=== PATIENT | female | born 1940 | race African-American/Black ===

== ENCOUNTER 2018-09-25 03:04 | Emergency (ER) | payer OTHER, MEDICAID ==
[~2018-09-25] VITALS: Ht 165.1 cm; Wt 90.7 kg
[2018-09-25 03:09] VITALS: Ht 165.1 cm; Wt 90.7 kg
[2018-09-25 05:45] VITALS: BP 121/70
== END 2018-09-25 05:45 | disposition home or self-care (01) ==
LOC: EDBD 03:04 → ED 03:04
DX: F41.9 Anxiety disorder, unspecified (principal); I10 Essential (primary) hypertension; E11.9 Type 2 diabetes mellitus without complications; I48.91 Unspecified atrial fibrillation; Z88.0 Allergy status to penicillin
CPT/HCPCS: 82962; J2060; Q0092

== ENCOUNTER 2018-11-23 06:45 | Emergency (ER) | payer OTHER, MEDICAID ==
[~2018-11-23] VITALS: Ht 165.1 cm; Wt 90.7 kg
[2018-11-23 06:49] VITALS: Ht 165.1 cm; Wt 90.7 kg
[2018-11-23 08:51] VITALS: BP 121/73
== END 2018-11-23 09:25 | disposition home or self-care (01) ==
LOC: ED 06:45
DX: S80.02XA Contusion of left knee, initial encounter (principal); S00.03XA Contusion of scalp, initial encounter; J44.9 Chronic obstructive pulmonary disease, unspecified; I10 Essential (primary) hypertension; E11.9 Type 2 diabetes mellitus without complications; I48.91 Unspecified atrial fibrillation; Z88.0 Allergy status to penicillin; W06.XXXA Fall from bed, initial encounter; Y93.89 Activity, other specified; Y92.89 Other specified places as the place of occurrence of the external cause; Y99.8 Other external cause status

== ENCOUNTER 2019-02-23 20:36 | Inpatient (IN) | payer OTHER, MEDICAID ==
[~2019-02-23] VITALS: Ht 166.4 cm; Wt 91.3 kg
--- NOTE | 2019-02-23 21:15 | NUR ---
PT PRESENTS TO ED WITH C/C OF CHRONIC INTERMITTENT COUGH. PER PT, COUGH IS PRODUCTIVE WITH "WHITE SLIME THAT LOOKS LIKE SNOT." PT LUNG SOUNDS CLEAR BILATERALLY. PT ALSO REPORTS HAVING N/V INTERMITTENTLY X3 WEEKS. NO ACTIVE VOMITING NOTED. PT DENIES CHEST PAIN OR SOB. PT IS AWAKE, SITTING UP IN GURNEY, SPEAKING IN FULL CLEAR SENTENCES, COUGHING NOTED, RESP ARE LABORED, BUT RELEIVED WITH HIGH LINN'S POSITION IN GURNEY, NAD NOTED. SKIN COLOR APPROPRIATE FOR ETHNICITY. PT'S DAUGHTER AT BEDSIDE. NAD NOTED. MSE COMPLETED BY DR. MARTINEZ.
--- NOTE | 2019-02-23 21:31 | NUR ---
PT MEDICATED PER MD ORDER. PT VERBALIZED UNDERSTANDING OF MEDICATION PRIOR TO ADMINISTRATION.
--- NOTE | 2019-02-23 21:31 | NUR ---
RT AT BEDSIDE FOR BREATHING TX.
[2019-02-23 21:47] LABS: BASOPHIL % 0.6 % (0-2); PLATELET COUNT 170 x10^3mcL (130-400)
[2019-02-23 22:12] LABS: CALCIUM 8.7 mg/dL (8.5-10.1); CARBON DIOXIDE 27.8 mmol/L (21-32); CHLORIDE SERUM 107 mmol/L (98-107); GLUCOSE SERUM 108 mg/dL (74-106); POTASSIUM SERUM 4.3 mmol/L (3.5-5.1); SODIUM SERUM 142 mmol/L (136-145)
--- NOTE | 2019-02-23 22:13 | NUR ---
DR. MARTINEZ AT BEDSIDE TO DISCUSS PLAN OF CARE WITH PT.
[2019-02-23 22:17] LABS: ALBUMIN 3.4 g/dL (3.4-5.0); ALKALINE PHOSPHATASE 122 U/L (46-116); ALT/SGPT 25 U/L (14-59); AST/SGOT 24 U/L (15-37); BILIRUBIN TOTAL 0.3 mg/dL (0.20-1.00); TOTAL PROTEIN, SERUM 6.8 g/dL (6.4-8.2)
[2019-02-23] MEDS ORDERED: CITALOPRAM HYDR10 M1 PO (22:17)
[2019-02-23] MEDS ORDERED: CARDIZEM CD360 MG PO (22:18)
[2019-02-23] MEDS ORDERED: COUMADIN2 MG PO (22:18)
[2019-02-23] MEDS ORDERED: ARICEPT5 MG PO (22:19)
[2019-02-23] MEDS ORDERED: ALLOPURINOL100 MG PO (22:19)
--- NOTE | 2019-02-23 22:54 | NUR ---
PT IS LAYING IN GURNEY AWAKE, AAOX4, RESP E/U, NAD NOTED, ON 2L VIA NC. REQUESTING TO EAT, PER DR. JUAN BAZAN TO GIVE PT SANDWICH.
--- NOTE | 2019-02-23 22:55 | NUR ---
REPORT CALLED TO RICHA GEIGER TO ASSUME CARE FOR PT.
--- NOTE | 2019-02-23 23:40 | NUR ---
PT WAS RECEIVED BY PRIMARY NURSE GIO FROM ED [facility]IA [facility] AT 2315H. PT SEEN LYING IN BED, CAME IN DUE TO COUGH X3 WEEKS. AAOX4. C/O 5/10 HEADACHE, DENIES DIZZINESS. ABLE TO FOLLOW COMMANDS. NO SOB NOTED, O2 SAT-96%, ON 2LPM/NC. C/O CHEST PAIN ONLY WHEN COUGHING. STATED THAT SHE HAS PRODUCTIVE COUGH, ABLE TO EXPECTORATE WHITE PHLEGM. AFIB ON THE MONITOR. DENIES ABDOMINAL PAIN/NASUEA/VOMITING. C/O CONSTIPATION, HAD HARD STOOLS TODAY. STATED THAT SHE HAS PERIODS OF INCONTINENCE WHEN COUGHING. IV SITE PATENT AND INTACT. SIDE RAILS UPX2. CALL LIGHT ON REACH. HOB ELEVATED AT 45 DEG.
[2019-02-23 23:42] VITALS: BP 102/65
[2019-02-23 23:53] VITALS: BP 128/75
[2019-02-23 23:56] VITALS: Ht 166.4 cm; Wt 91.3 kg
[2019-02-24 00:42] LABS: MAGNESIUM 2.2 mg/dL (1.8-2.4); PHOSPHOROUS 2.9 mg/dL (2.5-4.9)
--- NOTE | 2019-02-24 01:56 | NUR ---
DUE MEDS GIVEN ORDERED, SHIV. WELL. OCCA. NON PRODUCTIVE COUGH NOTED. [address], RESP. TREATMENT GIVEN BY RT, SHIV. WELL.HOB ELEVATED. REQUESTED FOR BENADRYL FOR SLEEPING, MEDICATED ORDERED. CALL LIGHT WITHIN REACH. WILL CONTINUE TO MONITOR.
[2019-02-24 05:09] VITALS: BP 108/63
--- NOTE | 2019-02-24 06:05 | NUR ---
NO COMPLAINTS NOTED AT THIS TIME. SLEPT WELL. RESP. EVEN AND UNLABORED. DENIES SOB. [address], NO ACUTE DISTRESS NOTED. REMAINS AFIB ON THE MONITOR, DENIES CHEST PAIN OR ANY DISCOMFORT AT THIS TIME. DUE MEDS GIVEN ORDERED, SHIV. WELL. AFEBRILE AND VITAL SIGNS STABLE. KEPT COMFORTABLE. CALL LIGHT WITHIN REACH. WILL CONTINUE TO MONITOR.
[2019-02-24 06:36] LABS: CALCIUM 8.4 mg/dL (8.5-10.1); CARBON DIOXIDE 23.7 mmol/L (21-32); CHLORIDE SERUM 105 mmol/L (98-107); GLUCOSE SERUM 160 mg/dL (74-106); MAGNESIUM 2.1 mg/dL (1.8-2.4); PHOSPHOROUS 2.2 mg/dL (2.5-4.9); POTASSIUM SERUM 4.3 mmol/L (3.5-5.1); SODIUM SERUM 138 mmol/L (136-145)
[2019-02-24 06:45] LABS: microscopic required? NO
--- NOTE | 2019-02-24 07:30 | NUR ---
SEEN AOX4, NOT IN DISTRESS, TELE 23, AFIB, PALPABLE PULSES, NO EDEMA, PRODUCTIVE COUGH WITH WHITISH SPUTUM NOTED, CTA ON BLF, ACTIVE BS, LAST BM 02/23/19, VOID WITH NO DYSURIA, DRY AND INTACT SKIN, NO PAIN AT THIS TIME, IV INTACT AND PATENT, SL AT LEFT WRIST, CALL LIGHT WITHIN REACH. BED AT LOWEST POSITION.
[2019-02-24 07:34] LABS: PLATELET COUNT 158 x10^3mcL (130-400)
[2019-02-24 07:36] LABS: UA SPECIFIC GRAVITY 1.025 (1.005-1.035); urine erythrocyte NEGATIVE (NEGATIVE)
--- NOTE | 2019-02-24 08:43 | NUR ---
SEEN AOX4, NOT IN DISTRESS, NO COMPLAINTS OF PAIN, NON PRODUCTIVE COUGH NOTED, PO MEDICATIONS GIVEN PRESCRIBED. CALL LIGHT WITHIN REACH. BED AT LOWEST POSITION.
[2019-02-24 08:51] LABS: RED CELL DISTRIBUTION WIDTH 17.3 % (11.5-14.5)
[2019-02-24 09:20] VITALS: BP 120/71
--- NOTE | 2019-02-24 11:24 | NUR ---
SEEN BY DR COLE. CALCIUM AND PHOSPHORUS RESULTS RELAYED. DR COLE MADE AWARE. PATIENT REQUESTED TO WALK TO RESTROOM TO URINATE. DR COLE MADE AWARE AND OK WITH REQUEST TO WALK WITH ASSIST. WILL CONTINUE TO MONITOR PATIENT.
[2019-02-24 11:41] LABS: BAND NEUTROPHIL 0 % (0-10); BASOPHIL 0 % (0-2); MONOCYTE 2 % (0-7); SEGMENTED NEUTROPHILS 83 % (37-75)
[2019-02-24 11:42] LABS: PLATELET MORPHOLOGY GIANT PLATELET SEEN; rbc morphology (normal/abnorm) ABNORMAL (NORMAL); tear drop cell (dacryocyte) 1+
--- NOTE | 2019-02-24 11:56 | NUR ---
SEEN AOX4, NOT IN DISTRESS, ACCUCHECK DONE WITH CBG 150. NO INSULIN REQUIRED. 0.9%NS INFUSING AT 250CC/HR GIVEN. NO REDNESS OR INFILTRATION. CALL LIGHT WITHIN REACH.
--- NOTE | 2019-02-24 12:20 | NUR ---
SEEN AOX4, COMPLAINS OF STRESS INCONTINENCE. OFFERED BED RALPH. PO MEDICATIONS GIVEN PRESCRIBED FOR AFIB
[2019-02-24 13:25] VITALS: BP 123/62
--- NOTE | 2019-02-24 16:22 | NUR ---
RECEIVED CALL FROM DR. EARL. MADE AWARE OF COUMADIN THIS 1699 AND NO PT AND INR LAB DRAW WAS TAKEN TODAY.
[2019-02-24 16:29] VITALS: BP 109/63
--- NOTE | 2019-02-24 16:38 | NUR ---
ACCUCHECK DONE WITH 158. REG 3 U INSULIN SQ GIVEN.
--- NOTE | 2019-02-24 17:22 | NUR ---
RECEIVED PT AND INR RESULTS. DR EARL MADE AWARE OF RESULTS. PER DR EARL , OK TO GIVE WARFARIN 2MG. PATIENT GIVEN WARFARIN PRESCRIBED. SOLUMEDROL IVP GIVEN .
[2019-02-24 19:26] VITALS: BP 122/69
--- NOTE | 2019-02-24 20:00 | NUR ---
RECEIVED PT IN BED,RESTING QUIETLY. A/O X4. DENIES HEADACHE/DIZZINESS. RESP. EVEN AND UNLABORED. 02 AT 2L/MIN VIA NC, DENIES SOB. ON RT PROT. HOB ELEVATED. NO ACUTE DISTRESS NOTED. AFEBRILE AND VITAL SIGNS STABLE. HL TO LT WRIST, INTACT AND PATENT. VOIDING FREELY, USING THE BSC WITH ASSIST. ASSISTED WITH HS CARE. CALL LIGHT WITHIN REACH. WILL CONTINUE TO MONITOR.
--- NOTE | 2019-02-25 02:20 | NUR ---
NO COMPLAINTS NOTED AT THIS TIME. SLEEPING, EASILY AROUSABLE. NO ACUTE DISTRESS NOTED. WILL CONTINUE TO MONITOR.
[2019-02-25 05:16] VITALS: BP 119/77
--- NOTE | 2019-02-25 05:37 | NUR ---
AWAKE, COMPLAINING OF HEADACHE, 5/10, TYLENOL PO GIVEN ORDERED. AFEBRILE AND VITAL SIGNS STABLE. DUE MEDS GIVEN ORDERED, SHIV. WELL . RESP. EVEN AND UNLABORED. DENIES SOB. [address], NO ACUTE DISTRESS NOTED. KEPT COMFORTABLE .ABLE TO USE THE BSC WITH ASSIST. WILL CONTINUE TO MONITOR.
[2019-02-25 06:34] LABS: CALCIUM 8.7 mg/dL (8.5-10.1); CARBON DIOXIDE 24.6 mmol/L (21-32); CHLORIDE SERUM 105 mmol/L (98-107); CREATININE SERUM 0.8 mg/dL (0.6-1.0); GLUCOSE SERUM 137 mg/dL (74-106); POTASSIUM SERUM 4.5 mmol/L (3.5-5.1); SODIUM SERUM 137 mmol/L (136-145)
--- NOTE | 2019-02-25 07:15 | NUR ---
RECIEVED REPORT FROM [facility] NURSE. PATIENT CURRENTLY AWAKE, ALERT, AND ORIENTED. RESTING IN BED ON 2 LITER NC. PATIENT REPORTS NO PAIN AT THIS TIME. IV TO THE LEFT WRIST-SALINE LOCKED. TELEMETRY MONITORING IN PLACE. BED IN THE LOW POSITIION.SAFETY PRECAUTIONS IN PLACE. CALL LIGHT WITHIN REACH. WILL CONTINUE TO MONITOR.
[2019-02-25 08:54] LABS: BASOPHIL % 0 % (0-2); PLATELET COUNT 166 x10^3mcL (130-400); RED CELL DISTRIBUTION WIDTH 16.8 % (11.5-14.5)
[2019-02-25 08:55] LABS: rbc morphology (normal/abnorm) ABNORMAL (NORMAL)
[2019-02-25] MEDS ORDERED: PREDNISONE50 MG PO (09:34)
[2019-02-25] MEDS ORDERED: LEVOFLOXACIN500 M1 PO (09:34)
[2019-02-25 09:57] VITALS: BP 119/77
--- NOTE | 2019-02-25 10:57 | NUR ---
ORDER FOR DISCHARGE PLACED BY PROSIDING PHYSICIAN. PATIENT CURRENTLY BEING WEANED FROM NC IN PREPARATION FOR DISCHARE. NC WEANED TO ONE LITER PATIENT SATURATING AT 95%. DAUGHTER CONTACTED REGARDING DISCHARGE, DAUGHTER STATED THAT SHE WILL DESIGN MAINTENANCE ENGINEER HER MOTHER AND THAT HER MOTHER DOES NOT TYPICALLY USE PORTABLE OXYGEN. WILL CONTINUE TO WEAN PATIENT FROM NC.
[2019-02-25 12:13] VITALS: BP 115/47
--- NOTE | 2019-02-25 15:29 | NUR ---
DISCHARGE INSTRUCTIONS AND EDUCATION PROVIDED TO PATIENT. PRESCRIPTIONS GIVEN TO PATIENT AND MEDICATION EDUCATION PROVIDED. IV REMOVED INTACT IN PREPARATION FOR DISCHARGE. EDUCATION PROVIDED ON TRIGGERS OF ACUTE EXACERBATION OF COPD. PATIENT VERBALIZED UNDERSTANDING. ECONOMIC MANAGER REMOVED AND RETURNED TO THE TELE STATION. PATIENT TRANSPORTED TO [facility] IN WHEELCHAIR BY [facility].
== END 2019-02-25 15:15 | disposition home or self-care (01) | DRG 189 ==
LOC: ED 20:36 → DU 22:27
PROVIDERS: Emergency Medicine; General Practice; ADMIT Family Medicine
DX: J96.01 Acute respiratory failure with hypoxia (principal); J44.1 Chronic obstructive pulmonary disease with (acute) exacerbation; E11.9 Type 2 diabetes mellitus without complications; I10 Essential (primary) hypertension; I48.91 Unspecified atrial fibrillation; F32.9 Major depressive disorder, single episode, unspecified; M10.9 Gout, unspecified; R74.0 Nonspecific elevation of levels of transaminase and lactic acid dehydrogenase [LDH]; Z99.81 Dependence on supplemental oxygen; Z68.33 Body mass index [BMI] 33.0-33.9, adult; Z87.891 Personal history of nicotine dependence; Z79.01 Long term (current) use of anticoagulants; Z79.84 Long term (current) use of oral hypoglycemic drugs
CPT/HCPCS: 36600; 82962; 83880; 97112-GP; G0378; J1956; J2920; J2930; J7050; J7613; J7620; J7644; Q0092; Q0163

== ENCOUNTER 2019-03-06 17:59 | Inpatient (IN) | payer OTHER ==
[~2019-03-06] VITALS: Ht 167.6 cm; Wt 91.2 kg
[~2019-03-06 17:59] MED LIST: ALLOPURINOL100 MG PO; ARICEPT5 MG PO; CARDIZEM CD360 MG PO; CITALOPRAM HYDR10 M1 PO; COUMADIN2 MG PO; LEVOFLOXACIN500 M1 PO; PREDNISONE50 MG PO
[2019-03-06 18:10] VITALS: Ht 167.6 cm; Wt 91.2 kg
--- NOTE | 2019-03-06 18:14 | NUR ---
PT BIB [facility] FROM HOME WITH C/O HEADACHE, DIZZINESS, COUGH AND SOB SINCE "WAKING UP THIS MORNING." PT HAS HISTORY OF COPD AND USES AT HOME O2 PRN. PT REPROTS SHE WAS SEEN HERE 2 DAYS AGO FOR SIMILAR SYMPTOMS. PT IS AAOX4, NO NEURO DEFICITS NOTED, NO DISTRESS NOTED, RESP E/U, DIMINISHED LUNG SOUNDS HEARD TO BILATERAL BASES, SKIN INTACT PINK WARM AND DRY. PT REPORTS AMBULATING AT HOME WITHOUT USE OF ANY ASSISTANCE DEVICES. IV ESTABLISHED RETAIL BUSINESS MANAGER BY MEDIC, 300ML BOLUS GIVEN RETAIL BUSINESS MANAGER PER MEDIC. PT REPORTS IMPROVED DIZZINESS AND HEADACHE AFTER BOLUS PER MEDIC. PT GOWNED, PLACED IN FULL CM, NSR, VSS, PT PLACED ON 2L OXYGEN VIA NC, SPO2 @ 96%. BED IN LOWEST POSITION, SIDERAIL X2 UP FOR SAFETY, CALL BLAS WITHIN REACH.
--- NOTE | 2019-03-06 18:31 | NUR ---
BREATHING TREATMENT IN PROGRESS, RT AT THE BEDSIDE.
[2019-03-06 18:36] LABS: BASOPHIL % 0.2 % (0-2); PLATELET COUNT 176 x10^3mcL (130-400)
[2019-03-06 18:39] LABS: RED CELL DISTRIBUTION WIDTH 17.3 % (11.5-14.5)
--- NOTE | 2019-03-06 18:40 | NUR ---
XRAY AT THE BEDSIDE
[2019-03-06 18:49] LABS: CALCIUM 8.3 mg/dL (8.5-10.1); CARBON DIOXIDE 33.3 mmol/L (21-32); CHLORIDE SERUM 103 mmol/L (98-107); CREATININE SERUM 1.3 mg/dL (0.6-1.0); GLUCOSE SERUM 109 mg/dL (74-106); POTASSIUM SERUM 4.4 mmol/L (3.5-5.1); SODIUM SERUM 139 mmol/L (136-145)
[2019-03-06 18:54] LABS: ALBUMIN 2.9 g/dL (3.4-5.0); ALKALINE PHOSPHATASE 92 U/L (46-116); ALT/SGPT 27 U/L (14-59); AST/SGOT 32 U/L (15-37); BILIRUBIN TOTAL 0.46 mg/dL (0.20-1.00); TOTAL PROTEIN, SERUM 6.1 g/dL (6.4-8.2)
--- NOTE | 2019-03-06 19:20 | NUR ---
REPORT GIVEN FROM DORINDA CHAUDHRY. PT A&0X4, SPEAKING FULL CLEAR SENTENCES, PT BREATHING EVEN AND UNLABORED. FULL CM AND [address] PT ANSWERING QUESTIONS APPROPRIATELY. LIGHTS OFF FOR PT COMFORT. PT REQUESTING FOOD AT THIS TIME. WILL CONTINUE TO MONITOR.
--- NOTE | 2019-03-06 19:25 | NUR ---
REPORT GIVEN TO DIMITRIOS DORMAN RN, WHO WILL ASSUME FURTHER CARE OF THIS PATIENT
--- NOTE | 2019-03-06 19:55 | NUR ---
HORTENSIA TO PROVIDE SANDWHICH AND WATER TO PT AT THIS TIME PER DR ESCOBAR. PT EXRESSED GRADTITUDE
--- NOTE | 2019-03-06 19:57 | NUR ---
RT AT BEDSIDE FOR BREATHING TREATMENT
--- NOTE | 2019-03-06 20:24 | NUR ---
REPORT CALLED TO CHUY CHAUDHRY AT EXT [id number]
--- NOTE | 2019-03-06 20:32 | NUR ---
PT MEDICATED PER MD ORDERS. PT TOLERATED WELL. IV FLUSHES WITH NO COMPLICATIONS. IV FLUID RUNNING AT ORDERED RATE. CM AND [address] WILL CONTINUE TO MONITOR.
--- NOTE | 2019-03-06 20:46 | NUR ---
PT TRANSFERED VIA WHEELCHAIR TO [facility] AT THIS TIME IN NAD. PT A&0X4, SPEAKING FULL CLEAR SENTENCES. PT BREATHING EVEN AND UNLABORED. PT NOTED ON 3L VIA NC UPON TRANSFER. PT BELONGINGS SENT WITH PT. PT ACCOMPANIED BY ELIUD GLOVER. PT VERBALIZED UNDERSTANDING OF PLAN OF CARE. IV INTACT AND FLUSHES WITH NO COMPLICATIONS.
[2019-03-06 21:02] VITALS: BP 107/65
[2019-03-06 21:08] LABS: MAGNESIUM 2.6 mg/dL (1.8-2.4); PHOSPHOROUS 3.6 mg/dL (2.5-4.9)
--- NOTE | 2019-03-06 21:11 | NUR ---
RECEIVED PT FROM ER, PT ADMIT FOR COPD EXACERBATION. PT IS A/O X4, VERBAL RESPONSIVE. LUNG SOUND DIM ISIAH, DENY ANY SOB AT THIS TIME, PT IS ON 2L/MIN O2 VIA NC. PO2 94%, PT DENY ANY CHEST PAIN OR DISCOMFORT, BOWEL SOUND PRESENT ALL 4 QUADRANTS, NO DISTENTION, NO TENDER. PEDAL PULSE PRESENT BOTH FEET, NO EDEMA, IV AT LEFT HAND, NO LEAKING, NO INFILTRATION. PT STATE LAST COUMADIN WAS THIS AM. ALL ADLS ASSIST, ALL NEED MET, CALL LIGHT IN REACH, WILL CONTINUE TO MONITOR.
--- NOTE | 2019-03-06 21:31 | NUR ---
PT RESTING WITH EYES OPEN. DENIES HEADACHE THUS FAR. IV INTACT ON THE LEFT HAND. DENIES DIFFICULTY BREATHING THUS FAR. MADE PT COMFORTABLE. WILL CONTINUE TO MONITOR.
--- NOTE | 2019-03-07 00:54 | NUR ---
PT RESTING WITH EYES CLOSED. NO DISTRESS AND DISCOMFORT NOTED. WILL CONTINUE TO MONITOR.
[2019-03-07 04:51] VITALS: BP 119/77
--- NOTE | 2019-03-07 06:01 | NUR ---
PT QUIET AND RESTING. DENIES DIFFICULTY BREATHING AND DIZZINESS THUS FAR. MADE PT COMFORTABLE. WILL ENDORSE TO THE AM NURSE ACCORDINGLY.
[2019-03-07 06:09] LABS: BASOPHIL % 0.1 % (0-2); PLATELET COUNT 172 x10^3mcL (130-400)
[2019-03-07 06:16] LABS: CALCIUM 8.3 mg/dL (8.5-10.1); CARBON DIOXIDE 28.5 mmol/L (21-32); CHLORIDE SERUM 105 mmol/L (98-107); CREATININE SERUM 1.1 mg/dL (0.6-1.0); GLUCOSE SERUM 193 mg/dL (74-106); MAGNESIUM 2.6 mg/dL (1.8-2.4); PHOSPHOROUS 2.1 mg/dL (2.5-4.9); POTASSIUM SERUM 4.7 mmol/L (3.5-5.1); SODIUM SERUM 137 mmol/L (136-145)
[2019-03-07 08:55] VITALS: BP 115/63
--- NOTE | 2019-03-07 10:17 | NUR ---
AAO TIMES 4. MED SURG PATIENT. LUNGS CTA. NO SOB. O2 SAT ON 3L NC 95%. BS'S ACTIVE TIMES 4. ZHONG, BRP. PERIPHERAL PULSES PALPABLE. NO EDEMA. IV SITE CDI. COOPERATIVE AND PLEASANT.
[2019-03-07 13:45] VITALS: BP 124/64
--- NOTE | 2019-03-07 18:15 | NUR ---
AAO TIMES 4. MED SURG PATIENT. NO C/O PAIN. NO SOB. IV SITE PATENT, CDI. COOPERATIVE AND PLEASANT.
[2019-03-07 18:20] VITALS: BP 121/78
--- NOTE | 2019-03-07 19:30 | NUR ---
RECIEVED PT FROM AM NURSE, PT AWAKE LAYING DOWN IN BED. PT AAOX4, ABLE TO FOLLOW COMMANDS AND MAKE NEEDS KNOWN. MED-SURG, DENIES CP/PRESSURE AT THIS TIME. PALPABLE PULSES TO ALL EXTREMETIES, NO EDEMA NOTED. DIMINISHED LUNG SOUNDS TO BASES. ON 2L NC, BREATHING EVEN AND UNLABORED. NO SOB NOTED. NO RESP DISTRESS NOTED. ABD SOFT AND NONDISTENDED. ACTIVE BS X4 QUAD. DENIES N/V/D. VOIDS FREELY, BRP. GENERALIZED WEAKNES, AMB WITH WALKER. IV TO LH FLUSHING WELL. SITE WNL. BED AT LOWEST SETTING. SIDE RAILS X2 UP. CALL LIGHT WITHING REACH. WILL CONT TO MONITOR.
[2019-03-07 19:50] VITALS: BP 120/87
[2019-03-07 22:13] LABS: microscopic required? NO
[2019-03-07 22:21] LABS: UA SPECIFIC GRAVITY >=1.030 (1.005-1.035); urine erythrocyte NEGATIVE (NEGATIVE)
--- NOTE | 2019-03-08 00:09 | NUR ---
PT LAYING DOWN IN BED WITH EYES CLOSED, BREATHING EVEN AND UNLABORED ON 2L NC. NO ACUTE DISTRESS NOTED. BED AT LOWEST SETTING. SIDE RAILS X2 UP. CALL LIGHT WITHING REACH. WILL CONT TO MONITOR.
[2019-03-08 04:44] VITALS: BP 108/63
[2019-03-08 05:52] LABS: BASOPHIL % 0.2 % (0-2); PLATELET COUNT 170 x10^3mcL (130-400)
--- NOTE | 2019-03-08 06:00 | NUR ---
PT SLEPT AT INTERVALS THROUGHOUT THE NIGHT, BREATHING EVEN AND UNLABORED ON 2L NC. NO ACUTE RESP DISTRESS NOTED. NO SIGNIFICANT CHANGES DURING SHIFT. ALL NEEDS ASSESSED AND ATTENDED TO. BED AT LOWEST SETTING. SIDE RAILS X2 UP. CALL LIGHT WITHIN REACH, WILL CONT TO MONITOR AND ENDORSE CARE TO AM NURSE.
[2019-03-08 06:06] LABS: CALCIUM 8.2 mg/dL (8.5-10.1); CARBON DIOXIDE 27.3 mmol/L (21-32); CHLORIDE SERUM 105 mmol/L (98-107); CREATININE SERUM 0.8 mg/dL (0.6-1.0); GLUCOSE SERUM 142 mg/dL (74-106); POTASSIUM SERUM 4.6 mmol/L (3.5-5.1); SODIUM SERUM 137 mmol/L (136-145)
[2019-03-08 06:10] LABS: RED CELL DISTRIBUTION WIDTH 17.1 % (11.5-14.5)
--- NOTE | 2019-03-08 06:45 | NUR ---
LAB FOR WBC OF 17.[address] CASTANO. NO NEW ORDERS RECEIVED, WILL ENDORSE CARE TO AM NURSE.
--- NOTE | 2019-03-08 07:15 | NUR ---
RECIEVED REPORT FROM [facility] NURSE PHILL. PATIENT CURRENTLY AWAKE ALERT AND ORIENTED. NO REPORT OF SOB AT THIS TIME. PATIENT CURRENTLY ON 2 LITER NC. OXYGEN SATURATION AT 98%. DIMINISHED LUNG SOUNDS TO THE BASES. PATIENT CURRENTLY SITTING UP IN BED AND EATING. IV TO THE LEFT HAND IS SALINE LOCKED. BED IN THE LOWEST POSITION. SAFETY PRECAUTIONS IN PLACE. WILL CONTINUE TO MONITOR PATIENT.
[2019-03-08 09:14] VITALS: BP 114/61
--- NOTE | 2019-03-08 10:58 | NUR ---
ECHOCARDIOGRAM DONE 02/25/2019. COPY IN CHART, NURSE RODOLFO CANTRELL.
[2019-03-08 13:38] VITALS: BP 116/74
--- NOTE | 2019-03-08 16:37 | NUR ---
PATIENT RECIEVED BREATHING TREATMENT WITH RESPIRATORY IN THE MORNING. PER CHARGE NURSE. PATIENT'S DAUGHTER JADA IS REQUESTING FOR CONSULT WITH CASE MANAGEMENT TO ARRANGE HOME OXYGEN FOR PATIENT PRIOR TO DISCHARGE THE PATIENT DOES NOT CURRENTLY HAVE OXYGEN THERAPY AT HOME.
[2019-03-08 17:50] VITALS: BP 94/49
[2019-03-08 18:13] VITALS: BP 98/58
--- NOTE | 2019-03-08 18:14 | NUR ---
RECIEVED REPORT FROM [facility] SPECIALIST THAT PATIENT'S MOST RECENT B/P IS 94/49.I IMMEADITELY WENT TO GO ASSESS MY PATIENT. PATIENT IS A/O X 4. NO ALOC. NO DIZZINESS OR FEELINGS OF SYNCOPE. RECHECK OF BLOOD PRESSURE REVEALED A B/P PF 98/58. WILL CONTINUE TO MONITOR PATIENT'S BP. NO PRN FLUIDS ORDERED PER EMAR. WILL ENDORSE TO NIGHT NURSE.
--- NOTE | 2019-03-08 19:49 | NUR ---
RECEIVED PT FROM AM SHIFT, PT IS A/O X4, VERBAL RESPONSIVE. LUNG SOUND CLEAR BILATERAL, NO COUGH, NO SOB. PT IS ON 2L/MIN O2 VIA NC. PO2 98%. DENY ANY CHEST PAIN OR DISCOMFORT, BOWEL SOUND PRESENT ALL 4 QUADRANTS, NO DISTENTION, NO TENDER. PEDAL PULSE PRESENT BOTH FEET, NO EDEMA, IV AT LEFT HAND, NO LEAKING, NO INFILTRATION. ALL ADLS ASSIST, ALL NEED MET, CALL LIGHT IN REACH, WILL CONTINUE TO MONITOR.
[2019-03-08 20:20] VITALS: BP 109/63
--- NOTE | 2019-03-09 05:37 | NUR ---
PT IS SLEEPING, AWAKE BY TOUCH, DENY ANY RESPIRATORY DISTRESS, DENY ANY PAIN OR DISCOMFORT. IV AT LEFT HAND, NO LEAKING, NO INFILTRATION. ALL ADLS ASSIST, ALL NEED MET, CALL LIGHT IN REACH, WILL CONTINUE TO MONITOR.
[2019-03-09 05:52] VITALS: BP 112/72
--- NOTE | 2019-03-09 07:20 | NUR ---
RECEIVED PT SITTING UP ON THE SIDE OF THE BED. NO ACUTE DISTRESS. AAOX4. RESP EVEN AND UNLABORED ON 2L NC. IV TO L HAND, NO REDNESS OR SWELLING NOTED. BED IN LOW POSITION, CALL LIGHT WITHIN REACH. WILL CONTINUE TO MONITOR.
[2019-03-09 09:01] VITALS: BP 107/63
[2019-03-09 09:24] LABS: BASOPHIL % 0.1 % (0-2); PLATELET COUNT 175 x10^3mcL (130-400)
[2019-03-09 09:53] LABS: RED CELL DISTRIBUTION WIDTH 17.4 % (11.5-14.5)
--- NOTE | 2019-03-09 12:18 | NUR ---
PT RESTING IN BED WATCHING TV. NO ACUTE DISTRESS. RESP EVEN AND UNLABORED ON 2L NC. HOB ELEVATED. IV TO L HAND, NO REDNESS OR SWELLING NOTED. CALL LIGHT WITHIN REACH. WILL CONTINUE TO MONITOR.
[2019-03-09 13:24] VITALS: BP 121/77
[2019-03-09 17:53] VITALS: BP 107/67
--- NOTE | 2019-03-09 18:46 | NUR ---
PT RESTING IN BED. NO ACUTE DISTRESS. RESP EVEN AND UNLABORED ON 2L NC. IV TO L HAND, NO REDNESS OR SWELLING. HOB ELEVATED. BED IN LOW POSITION, CALL LIGHT WITHIN REACH. WILL ENDORSE TO ONCOMING SHIFT.
--- NOTE | 2019-03-09 19:57 | NUR ---
PT CURRENTLY RESTING IN BED, NO ACUTE DISTRESS. A/O X4. NO TELE, MED/SURG. DENIES CHEST PAIN. PULSES PALPABLE IN ALL EXTREMITIES, NO EDEMA NOTED. LUNG SOUNDS CTA BILATERALLY, C/O SOB WITH EXERTION, RECEIVING O2 VIA NC AT 2L. BOWEL SOUNDS ACTIVE, LAST BM 03/09/19. VOIDING WELL. MILD GENERALIZED WEAKNESS, AMBULATORY. SKIN INTACT. IV PATENT AND INTACT. BED IN LOWEST POSITION, SIDE RAILS UP X2, CALL LIGHT WITHIN REACH. WILL CONTINUE TO MONITOR.
[2019-03-09 20:45] VITALS: BP 101/64
--- NOTE | 2019-03-09 23:15 | NUR ---
PT CURRENTLY RESTING IN BED, NO ACUTE DISTRESS. WILL CONTINUE TO MONITOR.
[2019-03-10 05:41] VITALS: BP 137/77
[2019-03-10 06:13] LABS: PLATELET COUNT 164 x10^3mcL (130-400)
[2019-03-10 06:21] LABS: CALCIUM 8.7 mg/dL (8.5-10.1); CHLORIDE SERUM 105 mmol/L (98-107); CREATININE SERUM 0.9 mg/dL (0.6-1.0); GLUCOSE SERUM 131 mg/dL (74-106); POTASSIUM SERUM 4.7 mmol/L (3.5-5.1); SODIUM SERUM 140 mmol/L (136-145)
[2019-03-10 06:28] LABS: BASOPHIL % 0 % (0-2); RED CELL DISTRIBUTION WIDTH 17.1 % (11.5-14.5)
--- NOTE | 2019-03-10 06:40 | NUR ---
PT SLEPT PERIODICALLY THROUGHOUT NIGHT, NO ACUTE DISTRESS. ALL NEEDS MET AND ATTENDED TO. NO SIGNIFICANT CHANGES. IV PATENT AND INTACT. BED IN LOWEST POSITION, SIDE RAILS UP X2, CALL LIGHT WITHIN REACH. WILL ENDORSE CARE TO ONCOMING NURSE.
--- NOTE | 2019-03-10 07:10 | NUR ---
RECEIVED A BEDSIDE REPORT. SEEN PATIENT ASLEEP, NO SOB NOTED, ON O2 2LPM N/C. S/L TO LT HAND INTACT AND PATENT. CALL LIGHT PLACED WITHIN EASY REACH. SIDERAILS UP X2.
--- NOTE | 2019-03-10 08:03 | NUR ---
PHYSICAL THERAPY DAILY NOTES CO-SIGN All documentation done by the School Principal for 03/09/19 has been reviewed. I agree with the documentation. Reviewed/Co-Signed by: Carol Palmer PT Documentation Done by:DALILA MCPHERSON PTA
--- NOTE | 2019-03-10 09:11 | NUR ---
AM SCHEDULED MEDS GIVEN. STATED HAS NO PAIN. LUNG SOUND CTA. ON O2 2LPM N/C. STATED ABLE TO WALK TO THE BATHROOM WITHOUT ASSISTANCE.
[2019-03-10 09:26] VITALS: BP 118/71
[2019-03-10 13:56] VITALS: BP 124/65
--- NOTE | 2019-03-10 14:00 | NUR ---
RESTING IN BED, DENIES PAIN OR DISCOMFORT AT THIS TIME.
[2019-03-10 15:04] VITALS: BP 118/71
--- NOTE | 2019-03-10 17:57 | NUR ---
DENIES CHEST PAIN OR CHEST PRESSURE. O2 2LPM MAINTAINED, NO SOB NOTED AT THIS TIME. ALL NEEDS ATTENDED. VIT. K IVPB INFUSING TO LT HAND IV SITE, NO INFILTRATION NOTED.
[2019-03-10 18:14] VITALS: BP 108/63
--- NOTE | 2019-03-10 19:30 | NUR ---
RECIEVED PT FROM PREVIOUS SHIFT NURSE. PT AOX4. RR EVEN AND UNLABORED. DENIES SOB AND NO SIGNS OF ACUTE DISTRESS. PT ON 2L NC AND IV LH PATENT AND CDI. BED IN LOWEST POSITION AND CALL LIGHT WITHIN REACH. WILL CONTINUE TO MONITOR.
[2019-03-10 20:29] VITALS: BP 119/63
[2019-03-11] VITALS (14 sets, daily range): BP systolic 100–146; BP diastolic 56–87
--- NOTE | 2019-03-11 01:00 | NUR ---
PT RESTING IN BED. RR EVEN AND UNLABORED, NO SIGNS OF ACUTE DISTRESS. BED IN LOWEST POSITION AND CALL LIGHT WITHIN REACH. WILL CONTINUE TO MONITOR.
[2019-03-11 06:29] LABS: PLATELET COUNT 167 x10^3mcL (130-400)
[2019-03-11 06:38] LABS: BASOPHIL % 0 % (0-2); RED CELL DISTRIBUTION WIDTH 17.5 % (11.5-14.5)
[2019-03-11 06:47] LABS: CALCIUM 8.5 mg/dL (8.5-10.1); CARBON DIOXIDE 29.5 mmol/L (21-32); CHLORIDE SERUM 105 mmol/L (98-107); CREATININE SERUM 0.9 mg/dL (0.6-1.0); GLUCOSE SERUM 135 mg/dL (74-106); SODIUM SERUM 139 mmol/L (136-145)
--- NOTE | 2019-03-11 07:30 | NUR ---
PATIENT IS A&OX4, FOLLOWS COMMANDS AND COOPERATES WELL. MEDSURG PATIENT, DENIES CHEST PAIN. PERIPHERAL PULSES PALPABLE W/ NO SIGNS OF EDEMA. LUNG SOUNDS CTA BILATERALLY, ON 2L NC, O2 SAT 95%. NORMOACTIVE BSX4. VOIDS WELL. GENERALIZED WEAKNESS, BUT AMBULATORY. SKIN IS NITACT. DENIES PAIN OR DISCOMFORT AT THIS TIME. L HAND IV SITE IS CDI, FLUSHES WELL. WILL CONTINUE TO MONITOR AT THIS TIME.
--- NOTE | 2019-03-11 10:23 | NUR ---
PATIENT HAS RECEIVED CONSENT FORM AND VERBALIZES UNDERSTANDING OF PROCEDURE. ALL QUESTIONS AND CONCERNS HAVE BEEN ADDRESSED WITH HER MD. PATIENT HAS SIGNED THE CONSENT FORM. THE PATIENT DID NOT APPEAR TO BE IN ANY DISTRESS OR DISCOMFORT. THE PATIENT STATED TAHT SHE WILL PUT ON A GOWN AND USE CHG WIPES INSTRUCTED. WILL CONTINUE TO MONITOR.
--- NOTE | 2019-03-11 11:54 | NUR ---
PATIENT HAS BEEN TRANSPORTED VIA PATIENT BED TO [facility] WITH TWO [facility] NURSES. ALL QUESTIONS AND CONCERNS HAVE BEEN ADDRESSED. WILL CONTINUE TO MONITOR.
--- NOTE | 2019-03-11 14:21 | NUR ---
AT 1355 - RECEIVED PATIENT FROM TRACTOR TRAILER OPERATOR. RECEIVED REPORTS BOTH FROM TRACTOR TRAILER OPERATOR NURSE AND TELEMETRY NURSE. PATIENT IS A TRANSFER TO ICU FOR OBSERVATION FOLLOWING CARDIAC CATH WITH 1 STENT PLACEMENT IN RCA. PATIENT IS AWAKE, ALERT AND ORIENTED X 4. VS WNL. MONITOR SHOWING SINUS RHYTHM; RATE 76. RESPIRATIONS REGULAR. RT AT BEDSIDE FOR BREATHING TREATMENT. NO C/O PAIN. OPSITE DRESSING TO R FEMORAL ACCESS SITE IS DRY. NO BLEEDING OR HEMATOMA NOTED. PEDAL PULSES PALPABLE. PATIENT AWARE OF NEED TO KEEP RLE STRAIGHT AND LIMIT MOVEMENT.
--- NOTE | 2019-03-11 14:36 | NUR ---
MONITOR SHOWING A-FIB; RATE 74. PATIENT HAS HX OF A-FIB.
--- NOTE | 2019-03-11 15:00 | NUR ---
AT 1445 - NOTED SWELLING AT R FEMORAL ACCESS SITE. PATIENT WAS COUGHING WHILE ON BEDPAN. APPLIED PRESSURE TO SITE WHILE PATIENT COUGHING. NOTIFIED WHITING CAN WORKER ADAIR OF DEVELOPING HEMATOMA. AT 1453 - SEEN BY WHITING CAN WORKER ADAIR. 2 LB SAND BAG APPLIED TO SITE. PATIENT AGAIN INSTRUCTED NOT TO MOVE RLE. PATIENT HAS VOIDED 200 ML POST PROCEDURE.
--- NOTE | 2019-03-11 15:16 | NUR ---
FAMILY AT BEDSIDE. MOLDER SETTER, RICHA COMER SPOKE WITH FAMILY ABOUT PROCEDURE THAT WAS PERFORMED AND EXPECTATIONS. VS REMAIN STABLE. HR 83. NO C/O PAIN.
--- NOTE | 2019-03-11 15:16 | NUR ---
FAMILY AT BEDSIDE, UPDATE PROVIDED REGARDING STENT PLACEMENT AND PROCEDURE DONE. PRIMARY RN VENUS AT BEDSIDE WELL. ALL QUESTIONS ANSWERED WITH NO MORE CONCERNS AT THIS TIME. ADVISED TO CONTACT DR. PALACIO OR DR COYLE FOR FURTHER EXPLANATIONS.
--- NOTE | 2019-03-11 15:57 | NUR ---
SAND BAG REMAINS IN PLACE. NO INCREASE OF SWELLING NOTED AT THIS TIME
--- NOTE | 2019-03-11 17:35 | NUR ---
PATIENT HAS BEEN ABLE TO TOLERATE SOME FULL LIQUIDS FOR DINNER. REMAINS LYING FLAT. R GROIN SWELLING APPERAS SLIGHTLY REDUCED. SAND BAG REMAINS IN PLACE. OPSITE INTACT. NO EVIDENCE OF BLEEDING AT ACCESS SITE. VSS AND WNL. MONITOR SHOWING A-FIB; RATE 82. PATIENT VOIDED A SECOND TIME POST PROCEDURE. 350 ML CLEAR YELLOW URINE. PATIENT WATCHING TV.
--- NOTE | 2019-03-11 18:37 | NUR ---
AWAKE, ALERT AND ORIENTED X 4. MONITOR SHOWING A-FIB; RATE 84. NO C/O CHEST PAIN. RESPIRATIONS REGULAR. O2 SAT 99% ON 2L VIA NC. BP STABLE AND WNL. AFEBRILE. OP-SITE TO R FEMORAL ANGIOGRAM SITE IS INTACT. NO VISIBLE BLEEDING. SWELLING REMAINS UNCHANGED. SAND BAG REMAINS IN PLACE TO R GROIN. WILL ENDORSE CARE TO NIGHT NURSE.
--- NOTE | 2019-03-11 19:53 | NUR ---
Awake and verbally responsive. No respiratory distress noted on room air. Denies pain. Denies n/v. Right groin edema and hematoma noted. No active bleeding. Sandbag in place. Kept RLE straight. Bedrest. Will cont.to monitor. Call light within reach.
--- NOTE | 2019-03-11 23:15 | NUR ---
Resting and watching TV at this time. Allowed to move RLE now. No change noted on the rt groin site.
[2019-03-12] VITALS: BP 113/69
--- NOTE | 2019-03-12 01:19 | NUR ---
Sleeping but easily arousable. No respiratory distress. No cues of pain.
[2019-03-12 04:00] VITALS: BP 105/75
--- NOTE | 2019-03-12 04:27 | NUR ---
Afebrile. No significant change in condition noted. Denies pain. Fluids tolerated. No n/v. Right groin site no bleeding noted. Assisted with needs. In no apparent distress.
[2019-03-12 05:12] LABS: PLATELET COUNT 170 x10^3mcL (130-400)
[2019-03-12 05:15] LABS: BASOPHIL % 0 % (0-2); RED CELL DISTRIBUTION WIDTH 16.7 % (11.5-14.5)
[2019-03-12 05:19] LABS: CALCIUM 8.5 mg/dL (8.5-10.1); CARBON DIOXIDE 28.7 mmol/L (21-32); CHLORIDE SERUM 102 mmol/L (98-107); CREATININE SERUM 0.8 mg/dL (0.6-1.0); GLUCOSE SERUM 97 mg/dL (74-106); POTASSIUM SERUM 4.4 mmol/L (3.5-5.1); SODIUM SERUM 135 mmol/L (136-145)
[2019-03-12 07:45] VITALS: BP 115/70
--- NOTE | 2019-03-12 07:45 | NUR ---
RC'D PT RESTING IN BED WITH NO APPARENT S/S OF DISTRESS. PT A/A/O/X3, SPEECH CLEAR AND APPROPRIATE. PT DENIES MARTINEZ/DIZZINESS. PT RESPONDS TO VERBAL COMMANDS AND ABLE TO MAKE NEEDS KNOWN. PERRLA NOTED. NO FACIAL DROOP NOTED. EENT FREE OF DRAINAGE. RESP E/U. LUNGS DIM TO BASES. PT ON 2L O2 VIA NC, DENIES SOB. SPO2 98%, NO RESP DISTRESS NOTED. AFIB ON CM, HR 107. PT DENIES CP. PALP PULSES, NO EDEMA NOTED TO BUE/BLE. CAP REFILL <3. SKIN WARM TO TOUCH ANC CONSISTENT WITH ETHNICITY. PT S/P CARDIAC CATH ON 03/11/19, ACCESS POINT TO RIGHT GROIN, DRESSING INTACT. PT ABLE TO REPOSITION SELF, WILL ASSIST PRN. ABDOMEN SOFT AND ROUND. ACTIVE BS. PT DENIES N/V. NO BM NOTED. PT VOIDS FREELY, DENIES BURNING. BED IN LOW POSITION. CALL LIGHT IN REACH. WILL CONT TO MONITOR CLOSELY
--- NOTE | 2019-03-12 08:32 | NUR ---
DIAL PRINTER HAYDE PRESENT AT BEDSIDE. UPDATED ON PTS CURRENT STATUS. ALL QUESTIONS AND CONCERNS ADDRESSED. PT TO TRANSFER TO TELE LATER TODAY
--- NOTE | 2019-03-12 08:38 | NUR ---
DR ADAMS PRESENT AT BEDSIDE. UPDATED ON PTS CURRENT STATUS. ALL QUESTIONS AND CONCERNS ADDRESSED.
--- NOTE | 2019-03-12 08:55 | NUR ---
AM MEDICATIONS GIVEN. PT TOLERATED WELL. RESP E/U. ON 2L O2 VIA NC, SPO2 98%. PT DENIES PAIN AT THIS TIME. WILL CONT TO MONITOR
--- NOTE | 2019-03-12 09:48 | NUR ---
PT PLACED BACK ON 2L O2 VIA NC, SPO2 DROPPED TO HIGH 70S' LOW 80'S. PT CURRENTLY ON 2L O2 WITH 99% SPO2. WILL ATTEMPT TO WEAN OFF TO 1L O2 AT THIS TIME
--- NOTE | 2019-03-12 09:54 | NUR ---
PT REMAINS WITH SPO2 98% ON 1L O2 VIA NC, WILL CONT TO MONITOR CLOSELY
--- NOTE | 2019-03-12 11:57 | NUR ---
REPORT CALLED AND GIVEN TO SANTOS CHAUDHRY, PT TO TRANSFER TO RM 221B. UPDATED ON PTS CURRENT STATUS. ALL QUESTIONS AND CONCERNS ADDRESSED. PT TO TRANSFER SHORTLY
--- NOTE | 2019-03-12 12:05 | NUR ---
SPOKE WITH PATIENT'S DAUGHTER PAULA AND INFORMED HER PATIENT PAULA AND INFORMED HER PATIENT IS BEING TRANSFERRED TO ROOM 221.
--- NOTE | 2019-03-12 12:22 | NUR ---
RECEIVED PT. FROM ICU DEPT. A/A/O X3. NO SOB, NO N/V NOTED. PT. DENIES ANY PAIN AT THIS TIME. IV SITE NOTED TO L HAND. OP-SITE DRESSING NOTED TO R GROIN STAINED WITH A SMALL AMT. OF OLD BLOOD. PT. IS PLACED ON TELE. MONITOR #6, WHICH IS SHOWING A. FIB. WITH H.R. RANGING BETWEEN 80 TO 90 BPM. PT. IS ON O2 AT 1L NC. B/P= 103/72 (85), P= 85, R.R.= 20, T= 97.4, O2 SAT.= 94% (O2 AT 1L NC). NO EDEMA NOTED. BED IN LOW POS., CALL LIGHT WITHIN REACH. SIDE RAILS UP X3.
[2019-03-12 12:25] VITALS: BP 103/72
[2019-03-12 17:12] VITALS: BP 136/43
--- NOTE | 2019-03-12 17:56 | NUR ---
REMAINS IN STABLE CONDITION AT THIS TIME. WILL CONTINUE TO MONITOR. OXYGEN TANK HAS BEEN DELIVERED TO PT.'S ROOM BY [employer].
--- NOTE | 2019-03-12 19:40 | NUR ---
RECEIVED REPORT FROM DAY SHIFT RN. PT RESTING IN BED COMFORTABLY. AA&O X4. NO SOB ON O2 2L VIA NC. BREATHING EVEN AND UNLABORED. NO C/O PAIN. NO DISTRESS NOTED. IV TO LEFT HAND, SALINE LOCKED. TRANSPARENT DRESSING TO RT GROIN, C/D/I. SAFETY MEASURES IN PLACE. BED IN LOWEST POSITION. SIDE RAILS UP X2. INSTRUCTED PT TO USE THE CALL LIGHT FOR ASSISTANCE. CALL LIGHT WITHIN EASY REACH.
[2019-03-12 20:31] VITALS: BP 90/57
--- NOTE | 2019-03-13 01:40 | NUR ---
AMBIEN GIVEN FOR INSOMNIA.
[2019-03-13 05:17] VITALS: BP 107/76
[2019-03-13 06:24] LABS: BASOPHIL % 0.2 % (0-2); PLATELET COUNT 156 x10^3mcL (130-400)
[2019-03-13 06:59] LABS: CALCIUM 7.8 mg/dL (8.5-10.1); CHLORIDE SERUM 105 mmol/L (98-107); CREATININE SERUM 0.9 mg/dL (0.6-1.0); GLUCOSE SERUM 84 mg/dL (74-106); POTASSIUM SERUM 4.3 mmol/L (3.5-5.1); SODIUM SERUM 140 mmol/L (136-145)
--- NOTE | 2019-03-13 07:18 | NUR ---
RECEIVED PATIENT AWAKE/ALERT IN BED, DENIES PAIN. DENIES SOB. ON RA SAT 95% NO DISTRESS NOTED. TELE #6 AFIB HR 75, POC DISCUSS. CALL LIGHT IN REACH.
--- NOTE | 2019-03-13 07:30 | NUR ---
PT RESTED IN INTERVALS DURING SHIFT. NO SOB ON O2 2L VIA NC. NO C/O PAIN. NO ACUTE DISTRESS NOTED. SALINE LOCK TO LEFT HAND, INTACT. SAFETY MEASURES MAINTAINED. ALL NEEDS ATTENDED TO. CALL LIGHT WITHIN REACH. ENDORSED CONTINUITY OF CARE TO DAY SHIFT RN.
[2019-03-13 08:14] VITALS: BP 99/66
--- NOTE | 2019-03-13 08:57 | NUR ---
PATIENT WALK BACK FROM BATHROOM, VOIDED. NO COMPLAIN. PATIENT SHOW RN HER SPIT UP MUSCUS NOTED THICK, YELLOW W/ SMEAR BLOOD INFORM PATIENT IS FROM DRY NOSE CAUSE BY OXYGEN, ALL PO MEDS ADMINISTERED AND TOLERATED, NEED MET. CALL LIGHT WITHIN REACH.
--- NOTE | 2019-03-13 10:20 | NUR ---
PATIENT SLEEPING NO DISTRESS NOTED, CALL LIGHT WITHIN REACH.
[2019-03-13] MEDS ORDERED: BRILINTA90 M1 PO (11:01)
[2019-03-13] MEDS ORDERED: ELIQUIS5 MG PO (11:04)
[2019-03-13] MEDS ORDERED: CARCD180 PO (11:05)
[2019-03-13] MEDS ORDERED: BAY PO (11:05)
--- NOTE | 2019-03-13 11:31 | NUR ---
PATIENT IN BED AWAKE/ALERT, ON THE PHONE WITH DTR -PAULA. INFORM DTR PATIENT IS DISCHARGE AND WILL BE HERE IN AN HOUR. BS 190 GAVE 3 UNITS REGULAR INSULIN SQ TO LT ARM, NEEDS MET. CALL LIGHT WITHIN REACH.
[2019-03-13 11:34] VITALS: BP 99/67
--- NOTE | 2019-03-13 11:39 | NUR ---
PATIENT INFORM RN THE CONCENTRATOR IS AT HER HOME, PORTABLE OXYGEN TANK AT BEDSIDE.
--- NOTE | 2019-03-13 12:39 | NUR ---
PATIENT SAT UP AT SIDE OF BED EATING HER LUNCH, NO COMPLAIN. O2 SAT 97% ON 2LNC. NEEDS MET. CONT TO MONITOR.
--- NOTE | 2019-03-13 13:05 | NUR ---
PATIENT SAT UP AT SIDE OF BED, NO COMPLAIN, DTR NAVDEEP AT BEDSIDE. DISCHARGE INSTRUCTIONS AND PRESCRIPTION EXPLAINED. IV REMOVED WITH CATHETER INTACT, NO SWELLING OR BLEEDING NOTED. TELE #6 REMOVED AND GAVE TO ESVIN Gnammo. PATIENT IS WHEEL OUT BY ABBY MARTEL WITH ALL BELONGINGS.
== END 2019-03-13 13:13 | disposition home health service (06) | DRG 286 ==
LOC: ED 17:59 → MU 20:07 → DU 03-11 11:09 → IC 03-11 13:42 → DU 03-12 12:22
PROVIDERS: Emergency Medicine; Family Medicine; Internal Medicine Geriatric Medicine; ADMIT Internal Medicine
PROC: B210YZZ Fluoroscopy of Single Coronary Artery using Other Contrast (ICD-10-PCS; 2019-03-11)
PROC: 4A023N7 Measurement of Cardiac Sampling and Pressure, Left Heart, Percutaneous Approach (ICD-10-PCS; principal; 2019-03-11 12:30)
DX: I25.10 Atherosclerotic heart disease of native coronary artery without angina pectoris (principal); J96.01 Acute respiratory failure with hypoxia; N17.0 Acute kidney failure with tubular necrosis; J44.1 Chronic obstructive pulmonary disease with (acute) exacerbation; E11.65 Type 2 diabetes mellitus with hyperglycemia; I48.91 Unspecified atrial fibrillation; I25.5 Ischemic cardiomyopathy; M10.9 Gout, unspecified; F03.90 Unspecified dementia, unspecified severity, without behavioral disturbance, psychotic disturbance, mood disturbance, and anxiety; E86.0 Dehydration; Z99.81 Dependence on supplemental oxygen; Z68.33 Body mass index [BMI] 33.0-33.9, adult; Z87.891 Personal history of nicotine dependence; Z79.01 Long term (current) use of anticoagulants; Z79.84 Long term (current) use of oral hypoglycemic drugs
CPT/HCPCS: CLHCL; 82962; 83880; 85378; 87804; 97112-GP; 97116-GP; 97530-GP; C1725; C1753; C1769; C1876; C1887; C1894; G0378; J1644; J1885; J1956; J2001; J2250; J2920; J2930; J3010; J3430; J7030; J7040; J7050; J7613; J7620; J7626; J7644; J8597; Q0092; Q9967

== ENCOUNTER 2019-04-09 15:21 | Inpatient (IN) | payer OTHER ==
[~2019-04-09] VITALS: Ht 165.1 cm; Wt 89.8 kg
[2019-04-09 15:21] VITALS: Ht 165.1 cm; Wt 89.8 kg
[~2019-04-09 15:21] MED LIST changes: +BAY PO; +BRILINTA90 M1 PO; +CARCD180 PO; +ELIQUIS5 MG PO
[2019-04-09 16:53] LABS: CALCIUM 8.2 mg/dL (8.5-10.1); CARBON DIOXIDE 25.9 mmol/L (21-32); CHLORIDE SERUM 108 mmol/L (98-107); GLUCOSE SERUM 117 mg/dL (74-106); POTASSIUM SERUM 4.7 mmol/L (3.5-5.1); SODIUM SERUM 142 mmol/L (136-145)
[2019-04-09 16:59] LABS: ALKALINE PHOSPHATASE 122 U/L (46-116); ALT/SGPT 17 U/L (14-59); AST/SGOT 19 U/L (15-37); BILIRUBIN TOTAL 0.35 mg/dL (0.20-1.00); TOTAL PROTEIN, SERUM 6.6 g/dL (6.4-8.2)
[2019-04-09 17:01] LABS: PLATELET COUNT 272 x10^3mcL (130-400)
[2019-04-09 17:06] LABS: RED CELL DISTRIBUTION WIDTH 21.3 % (11.5-14.5)
[2019-04-09 17:11] LABS: ALBUMIN 2.8 g/dL (3.4-5.0)
[2019-04-09 17:54] LABS: BAND NEUTROPHIL 1 % (0-10); BASOPHIL 0 % (0-2); MONOCYTE 10 % (0-7); PLATELET MORPHOLOGY PLATELETS NORMAL; SEGMENTED NEUTROPHILS 70 % (37-75); rbc morphology (normal/abnorm) ABNORMAL (NORMAL)
[2019-04-09 19:27] LABS: T3 TOTAL 1.01 ng/mL
[2019-04-09 19:39] LABS: MAGNESIUM 2.4 mg/dL (1.8-2.4)
[2019-04-09 19:40] LABS: CHOLESTEROL/HDL RATIO 2.2
[2019-04-09 20:11] LABS: FREE T4 0.8 ng/dL (0.76-1.46); FREE THYROXINE INDEX 2.5 ug/dL (1.4-4.5); T4(THYROXINE) 7.1 ug/dL (4.7-13.3)
[2019-04-09 22:58] VITALS: BP 116/64
[2019-04-10 00:05] VITALS: BP 116/64
[2019-04-10 06:06] VITALS: BP 114/66
[2019-04-10 06:34] LABS: microscopic required? NO
[2019-04-10 07:11] LABS: PLATELET COUNT 256 x10^3mcL (130-400)
[2019-04-10 07:14] LABS: BASOPHIL % 0 % (0-2); RED CELL DISTRIBUTION WIDTH 20.3 % (11.5-14.5)
[2019-04-10 07:34] LABS: CALCIUM 8.4 mg/dL (8.5-10.1); CARBON DIOXIDE 22.1 mmol/L (21-32); CHLORIDE SERUM 109 mmol/L (98-107); CREATININE SERUM 0.8 mg/dL (0.6-1.0); GLUCOSE SERUM 145 mg/dL (74-106); MAGNESIUM 2.2 mg/dL (1.8-2.4); PHOSPHOROUS 2.6 mg/dL (2.5-4.9); POTASSIUM SERUM 5.1 mmol/L (3.5-5.1); SODIUM SERUM 141 mmol/L (136-145)
[2019-04-10 07:54] LABS: UA SPECIFIC GRAVITY 1.015 (1.005-1.035); urine erythrocyte NEGATIVE (NEGATIVE)
[2019-04-10 08:20] LABS: AMPHETAMINE QUAL UR NONE DETECTED (See below)
[2019-04-10 09:05] VITALS: BP 92/54
[2019-04-10 11:12] LABS: rbc morphology (normal/abnorm) ABNORMAL (NORMAL)
[2019-04-10 11:13] LABS: target cell (codocyte) 2+
[2019-04-10 16:11] VITALS: BP 97/53
[2019-04-10 23:18] VITALS: BP 121/74
[2019-04-11 05:49] VITALS: BP 105/54
[2019-04-11 07:12] LABS: CALCIUM 8.1 mg/dL (8.5-10.1); CARBON DIOXIDE 23.5 mmol/L (21-32); CHLORIDE SERUM 115 mmol/L (98-107); CREATININE SERUM 0.8 mg/dL (0.6-1.0); GLUCOSE SERUM 120 mg/dL (74-106); POTASSIUM SERUM 3.5 mmol/L (3.5-5.1); SODIUM SERUM 150 mmol/L (136-145)
[2019-04-11 07:35] LABS: PLATELET COUNT 268 x10^3mcL (130-400)
[2019-04-11 08:15] LABS: BASOPHIL % 0 % (0-2); RED CELL DISTRIBUTION WIDTH 20.9 % (11.5-14.5)
[2019-04-11 08:25] VITALS: BP 112/63
[2019-04-11 09:14] VITALS: BP 116/76
[2019-04-11 10:26] LABS: rbc morphology (normal/abnorm) ABNORMAL (NORMAL)
[2019-04-11 12:29] VITALS: BP 109/52
[2019-04-11 16:25] VITALS: BP 97/60
[2019-04-11 20:36] VITALS: BP 118/62
[2019-04-12 05:42] VITALS: BP 99/52
[2019-04-12 08:16] VITALS: BP 101/63
[2019-04-12 10:08] LABS: BASOPHIL % 0.1 % (0-2); PLATELET COUNT 285 x10^3mcL (130-400)
[2019-04-12 10:11] LABS: RED CELL DISTRIBUTION WIDTH 21.4 % (11.5-14.5)
[2019-04-12 10:12] LABS: CALCIUM 8.2 mg/dL (8.5-10.1); CARBON DIOXIDE 26.9 mmol/L (21-32); CHLORIDE SERUM 108 mmol/L (98-107); CREATININE SERUM 0.8 mg/dL (0.6-1.0); GLUCOSE SERUM 92 mg/dL (74-106); POTASSIUM SERUM 3.5 mmol/L (3.5-5.1); SODIUM SERUM 142 mmol/L (136-145)
[2019-04-12 10:17] LABS: IRON 113 ug/dL (50-170); TOTAL IRON BINDING CAPACITY 286 ug/dL (250-450)
[2019-04-12 10:18] LABS: ovalocyte/elliptocyte 1+; rbc morphology (normal/abnorm) ABNORMAL (NORMAL)
[2019-04-12] MEDS ORDERED: ELIQUIS5 MG PO (11:26)
[2019-04-12] MEDS ORDERED: FER300 PO (11:27)
[2019-04-12] MEDS ORDERED: LAC30L PO (11:28)
[2019-04-12] MEDS ORDERED: CARDIZEM CD360 MG PO (11:29)
[2019-04-12 12:38] VITALS: BP 119/53
[2019-04-12 12:39] VITALS: BP 114/53
== END 2019-04-12 15:39 | disposition home or self-care (01) | DRG 377 ==
LOC: ED 15:21 → DU 18:41
PROVIDERS: Emergency Medicine; Internal Medicine Gastroenterology; ADMIT Internal Medicine
PROC: 0DB68ZX Excision of Stomach, Via Natural or Artificial Opening Endoscopic, Diagnostic (ICD-10-PCS; 2019-04-10 13:00)
PROC: 0W3P8ZZ Control Bleeding in Gastrointestinal Tract, Via Natural or Artificial Opening Endoscopic (ICD-10-PCS; principal; 2019-04-11 08:00)
DX: K55.21 Angiodysplasia of colon with hemorrhage (principal); N17.0 Acute kidney failure with tubular necrosis; E43 Unspecified severe protein-calorie malnutrition; J44.1 Chronic obstructive pulmonary disease with (acute) exacerbation; D62 Acute posthemorrhagic anemia; E86.0 Dehydration; I11.9 Hypertensive heart disease without heart failure; I25.10 Atherosclerotic heart disease of native coronary artery without angina pectoris; I48.91 Unspecified atrial fibrillation; E11.9 Type 2 diabetes mellitus without complications; Z99.81 Dependence on supplemental oxygen; Z68.33 Body mass index [BMI] 33.0-33.9, adult; Z87.891 Personal history of nicotine dependence
CPT/HCPCS: 43235; 45378; 82962; 83880; 84439; 94150; C9113; G0378; J1100; J1200; J1610; J2250; J2310; J3010; J3490; J7030; J7050; J7620; Q0092; Q0163

== ENCOUNTER 2019-10-12 18:37 | Emergency (ER) | payer OTHER, MEDICAID ==
[~2019-10-12] VITALS: Ht 162.6 cm; Wt 86.2 kg
[~2019-10-12 18:37] MED LIST changes: +FER300 PO; +LAC30L PO
[2019-10-12 18:56] VITALS: Ht 162.6 cm; Wt 86.2 kg
[2019-10-12 19:59] LABS: BASOPHIL % 0.1 % (0-2); PLATELET COUNT 134 x10^3mcL (130-400)
[2019-10-12 20:00] LABS: RED CELL DISTRIBUTION WIDTH 19.4 % (11.5-14.5)
[2019-10-12 20:09] LABS: CALCIUM 8.6 mg/dL (8.5-10.1); CARBON DIOXIDE 27.4 mmol/L (21-32); CHLORIDE SERUM 106 mmol/L (98-107); GLUCOSE SERUM 98 mg/dL (74-106); POTASSIUM SERUM 4.3 mmol/L (3.5-5.1); SODIUM SERUM 141 mmol/L (136-145)
[2019-10-12 20:14] LABS: ALKALINE PHOSPHATASE 103 U/L (46-116); ALT/SGPT 18 U/L (14-59); AST/SGOT 22 U/L (15-37); BILIRUBIN TOTAL 0.5 mg/dL (0.20-1.00); TOTAL PROTEIN, SERUM 6.7 g/dL (6.4-8.2)
[2019-10-12 20:18] LABS: ALBUMIN 3.3 g/dL (3.4-5.0)
[2019-10-12 22:09] VITALS: BP 114/80
== END 2019-10-12 22:09 | disposition home or self-care (01) ==
LOC: ED 18:37
PROVIDERS: Emergency Medicine
DX: F41.9 Anxiety disorder, unspecified (principal); J44.9 Chronic obstructive pulmonary disease, unspecified; I10 Essential (primary) hypertension; E11.9 Type 2 diabetes mellitus without complications; E78.00 Pure hypercholesterolemia, unspecified; Z88.0 Allergy status to penicillin; Z86.73 Personal history of transient ischemic attack (TIA), and cerebral infarction without residual deficits
CPT/HCPCS: Q0092

== ENCOUNTER 2020-04-12 13:53 | Emergency (ER) | payer OTHER, MEDICAID ==
[~2020-04-12] VITALS: Ht 165.1 cm; Wt 94.3 kg
[2020-04-12 14:05] VITALS: Ht 165.1 cm; Wt 94.3 kg
[2020-04-12 16:32] VITALS: BP 128/89
== END 2020-04-12 16:32 | disposition home or self-care (01) ==
LOC: ED 13:53
DX: M54.5 Low back pain (principal); G89.29 Other chronic pain; I10 Essential (primary) hypertension; E11.9 Type 2 diabetes mellitus without complications; J44.9 Chronic obstructive pulmonary disease, unspecified; E78.00 Pure hypercholesterolemia, unspecified; Z86.73 Personal history of transient ischemic attack (TIA), and cerebral infarction without residual deficits; Z88.0 Allergy status to penicillin
CPT/HCPCS: J1885; J2270

== ENCOUNTER 2020-05-04 21:37 | Emergency (ER) | payer OTHER, MEDICAID ==
[~2020-05-04] VITALS: Ht 165.1 cm; Wt 95.3 kg
[2020-05-04 21:49] VITALS: Ht 165.1 cm; Wt 95.3 kg
[2020-05-04 22:38] LABS: BASOPHIL % 1.3 % (0.2-1.3); PLATELET COUNT 154 x10^3mcL (179-408)
[2020-05-04 22:40] LABS: RED CELL DISTRIBUTION WIDTH 17.3 % (12.3-17.7)
[2020-05-04 22:44] LABS: rbc morphology (normal/abnorm) NORMAL (NORMAL)
[2020-05-04 22:51] LABS: CALCIUM 8.9 mg/dL (8.5-10.1); CARBON DIOXIDE 28.9 mmol/L (21-32); CHLORIDE SERUM 107 mmol/L (98-107); CREATININE SERUM 1.2 mg/dL (0.6-1.0); GLUCOSE SERUM 126 mg/dL (74-106); POTASSIUM SERUM 4.4 mmol/L (3.5-5.1); SODIUM SERUM 141 mmol/L (136-145)
[2020-05-04 23:07] LABS: ALBUMIN 2.9 g/dL (3.4-5.0); ALKALINE PHOSPHATASE 114 U/L (46-116); ALT/SGPT 27 U/L (14-59); AST/SGOT 23 U/L (15-37); BILIRUBIN TOTAL 0.28 mg/dL (0.20-1.00); TOTAL PROTEIN, SERUM 6.3 g/dL (6.4-8.2)
[2020-05-05 00:23] LABS: microscopic required? YES; urine erythrocyte 3+ (NEGATIVE)
[2020-05-05] MEDS ORDERED: KEF500 PO ×2 (01:12)
[2020-05-05] MEDS ORDERED: DOXYCYCLINE HY100 MG PO ×2 (01:12)
[2020-05-05] MEDS ORDERED: PROAIR RES117 MCG/Ac INH (01:12)
[2020-05-05 06:10] VITALS: BP 112/65
== END 2020-05-05 05:53 | disposition home or self-care (01) ==
LOC: ED 21:37
PROVIDERS: Emergency Medicine
DX: S37.009A Unspecified injury of unspecified kidney, initial encounter (principal); J18.8 Other pneumonia, unspecified organism; N39.0 Urinary tract infection, site not specified; D69.6 Thrombocytopenia, unspecified; J44.9 Chronic obstructive pulmonary disease, unspecified; I10 Essential (primary) hypertension; E11.9 Type 2 diabetes mellitus without complications; E78.00 Pure hypercholesterolemia, unspecified; Z88.0 Allergy status to penicillin; X58.XXXA Exposure to other specified factors, initial encounter; Y93.89 Activity, other specified; Y92.89 Other specified places as the place of occurrence of the external cause; Y99.8 Other external cause status

== ENCOUNTER 2020-05-07 12:06 | Inpatient (IN) | payer OTHER, MEDICAID ==
[~2020-05-07] VITALS: Ht 166.4 cm; Wt 103.1 kg
[~2020-05-07 12:06] MED LIST changes: +DOXYCYCLINE HY100 MG PO; +KEF500 PO; +PROAIR RES117 MCG/Ac INH
[2020-05-07 13:27] LABS: BASOPHIL % 1.3 % (0.2-1.3); PLATELET COUNT 154 x10^3mcL (179-408)
[2020-05-07 13:46] LABS: RED CELL DISTRIBUTION WIDTH 17.4 % (12.3-17.7)
[2020-05-07 13:50] LABS: CALCIUM 8.9 mg/dL (8.5-10.1); CARBON DIOXIDE 27.7 mmol/L (21-32); CHLORIDE SERUM 107 mmol/L (98-107); GLUCOSE SERUM 104 mg/dL (74-106); POTASSIUM SERUM 4.6 mmol/L (3.5-5.1); SODIUM SERUM 141 mmol/L (136-145)
[2020-05-07 13:57] LABS: ALKALINE PHOSPHATASE 112 U/L (46-116); ALT/SGPT 30 U/L (14-59); AST/SGOT 25 U/L (15-37); BILIRUBIN TOTAL 0.3 mg/dL (0.20-1.00); C REACTIVE PROTEIN 0.9 mg/dL (<=0.9); TOTAL PROTEIN, SERUM 6.7 g/dL (6.4-8.2)
[2020-05-07 14:04] LABS: ALBUMIN 3.2 g/dL (3.4-5.0)
[2020-05-07 14:48] LABS: UA SPECIFIC GRAVITY >=1.030 (1.005-1.035); microscopic required? YES; urine erythrocyte TRACE (NEGATIVE)
[2020-05-07] MEDS ORDERED: ARICEPT5 MG (16:20)
[2020-05-07] MEDS ORDERED: ZYLOPRIM100 MG (16:20)
[2020-05-07] MEDS ORDERED: CELEXA10 MG (16:20)
[2020-05-07] MEDS ORDERED: NOR5 (16:21)
[2020-05-07] MEDS ORDERED: HORIZANT300 MG (16:22)
[2020-05-07] MEDS ORDERED: ZESTRIL2.5 MG (16:22)
[2020-05-07] MEDS ORDERED: ATORVASTATIN CA40 M1 (16:22)
[2020-05-07] MEDS ORDERED: DOK COLACE100 MG (16:23)
[2020-05-07 16:51] LABS: CHOLESTEROL/HDL RATIO 2.1
[2020-05-07 16:55] LABS: T3 TOTAL 1.09 ng/mL
[2020-05-07 16:57] LABS: FREE T4 0.69 ng/dL (0.76-1.46); FREE THYROXINE INDEX 1.5 ug/dL (1.4-4.5); T4(THYROXINE) 5.1 ug/dL (4.7-13.3)
[2020-05-07] MEDS ORDERED: OLANZAPINE2.5 M1 PO (17:37)
[2020-05-07] MEDS ORDERED: GABAPENTIN300 M4 (17:37)
[2020-05-07] MEDS ORDERED: MEMANTINE HCL5 MG PO (17:37)
[2020-05-07] MEDS ORDERED: AMLODIPINE BESYL5 M2 PO (17:55)
[2020-05-07] MEDS ORDERED: DILTIAZEM30 M1 PO (17:56)
[2020-05-07 18:01] VITALS: BP 112/74
[2020-05-07 18:09] VITALS: Ht 166.4 cm; Wt 103.1 kg
[2020-05-07 20:05] VITALS: BP 114/55
[2020-05-08 05:30] VITALS: BP 113/63
[2020-05-08 06:53] LABS: BASOPHIL % 0.1 % (0.2-1.3)
[2020-05-08 07:05] LABS: CALCIUM 8.9 mg/dL (8.5-10.1); CARBON DIOXIDE 27.7 mmol/L (21-32); CHLORIDE SERUM 106 mmol/L (98-107); GLUCOSE SERUM 152 mg/dL (74-106); POTASSIUM SERUM 4.6 mmol/L (3.5-5.1); SODIUM SERUM 140 mmol/L (136-145)
[2020-05-08 07:43] LABS: PLATELET COUNT 169 x10^3mcL (179-408)
[2020-05-08 08:00] VITALS: BP 131/82
[2020-05-08 11:56] VITALS: BP 120/72
[2020-05-08 16:13] VITALS: BP 103/58
[2020-05-08 20:41] VITALS: BP 119/77
[2020-05-09 05:11] VITALS: BP 115/72
[2020-05-09 08:39] VITALS: BP 113/63
[2020-05-09] MEDS ORDERED: MEDROL DOSEPAK4 MG PO (08:54)
[2020-05-09] MEDS ORDERED: SYMBICORT1 AE2 IH (09:00)
[2020-05-09] MEDS ORDERED: LEV250 PO (09:01)
[2020-05-09 10:02] VITALS: BP 113/63
== END 2020-05-09 11:52 | disposition home or self-care (01) | DRG 189 ==
LOC: ED 12:06 → DU 15:48
PROVIDERS: Emergency Medicine; ADMIT Internal Medicine; ATTEND Internal Medicine
DX: J96.01 Acute respiratory failure with hypoxia (principal); J44.1 Chronic obstructive pulmonary disease with (acute) exacerbation; I48.91 Unspecified atrial fibrillation; Z20.822 Contact with and (suspected) exposure to COVID-19; E11.40 Type 2 diabetes mellitus with diabetic neuropathy, unspecified; M10.9 Gout, unspecified; J96.02 Acute respiratory failure with hypercapnia; F32.9 Major depressive disorder, single episode, unspecified; F03.90 Unspecified dementia, unspecified severity, without behavioral disturbance, psychotic disturbance, mood disturbance, and anxiety; I10 Essential (primary) hypertension; Z88.0 Allergy status to penicillin; Z79.82 Long term (current) use of aspirin; Z87.440 Personal history of urinary (tract) infections; Z86.73 Personal history of transient ischemic attack (TIA), and cerebral infarction without residual deficits; Z95.818 Presence of other cardiac implants and grafts
CPT/HCPCS: 36600; 82962; 83880; 84439; 94150; 97116-GP; G0378; J1956; J2543; J2920; J2930; J7030; J7613; J7644; U0003

== ENCOUNTER 2020-05-16 21:37 | Emergency (ER) | payer OTHER, MEDICAID ==
[~2020-05-16] VITALS: Ht 165.1 cm; Wt 108.9 kg
[~2020-05-16 21:37] MED LIST changes: +AMLODIPINE BESYL5 M2 PO; +ARICEPT5 MG; +ATORVASTATIN CA40 M1; +CELEXA10 MG; +DILTIAZEM30 M1 PO; +DOK COLACE100 MG; +GABAPENTIN300 M4; +HORIZANT300 MG; +LEV250 PO; +MEDROL DOSEPAK4 MG PO; +MEMANTINE HCL5 MG PO; +NOR5; +OLANZAPINE2.5 M1 PO; +SYMBICORT1 AE2 IH; +ZESTRIL2.5 MG; +ZYLOPRIM100 MG
[2020-05-16 21:40] VITALS: Ht 165.1 cm; Wt 108.9 kg
[2020-05-16 23:15] VITALS: BP 107/70
== END 2020-05-16 23:15 | disposition left against medical advice (07) ==
LOC: ED 21:37
DX: R25.1 Tremor, unspecified (principal); I10 Essential (primary) hypertension; E11.9 Type 2 diabetes mellitus without complications; E78.00 Pure hypercholesterolemia, unspecified; J44.9 Chronic obstructive pulmonary disease, unspecified; Z95.1 Presence of aortocoronary bypass graft; Z88.0 Allergy status to penicillin